=== PATIENT | female | born 1960 | race Caucasian/White ===

== ENCOUNTER 2025-07-25 12:30 | Emergency (ER) | payer OTHER, SELFPAY ==
[2025-07-25 13:03] VITALS: BP 115/71; PULSE 82; RESP 16; TEMP 36.4; O2SAT 99; BMI 27.9
--- NOTE | 2025-07-25 13:04 | ED.GENADULT ---
HPI - General Adult General Chief complaint: General Medical Stated complaint: SOB ? Diverticulitis Flare-up Related Data Allergies Allergy/AdvReac Type Severity Reaction Status Date / Time No Known Allergies Allergy Verified 07/25/25 13:06 [facility] Social History Social History Advance Directives: No Advance Directives Information Provided: No Physical Exam ED Vital Signs: BMI result Body Mass Index 27.9 Course Course Course Narrative: This is a rapid medical exam performed by Kristen Bolivar NP: Additional HPI, ROS, PE not included below will be deferred to primary provider. Patient is a 64y/o F with pmhx of diverticulitis presenting with acute episode prior to arrival of abrupt abd pain, then had diarrhea/was incontinent of stool while driving. She then became diaphoretic and had dyspnea, jaw pain so she pulled in to the ED here. Reports palpitations/heart racing. Also states has been having bright red blood in stool for the past month. Intermittent chest pain at nights. Plan: EKG, labs, UA Patient left the emergency department before myself or any of the other clinicians could review or explain physical exam findings, test results, need or lack there of for additional testing, treatment options, or a treatment plan. Medical Decision Making Lab Data 07/25/25 13:14 07/25/25 13:14 Labs: Lab Results 07/25/25 Range/Units 13:14 WBC 6.3 (4.8-10.8) X10*3/uL RBC 4.50 (4.20-5.50) X10*6/uL Hgb 13.0 (12.0-16.0) g/dl Hct 39.0 (37.0-47.0) % MCV 86.7 (80.0-98.0) fL MCH 28.9 (27.0-33.0) pg MCHC 33.3 (31.0-35.0) g/dl RDW 12.5 (11.0-16.0) % Plt Count 275 (160-400) X10*3/uL MPV 9.3 L (9.4-12.3) fL Immature Gran % (Auto) 0.3 (0.0-0.4) % Neut % (Auto) 54.3 (45-73) % Lymph % (Auto) 34.4 (20-40) % [place] % (Auto) 7.7 (2-11) % Eos % (Auto) 2.5 (0-4) % Baso % (Auto) 0.8 (0-2) % Lymph # (Auto) 2.2 (1.2-4.9) X10*3/uL Lawrence # (Auto) 0.5 (0.1-1.2) X10*3/uL Eos # (Auto) 0.2 (0.0-0.4) X10*3/uL Baso # (Auto) 0.1 (0.0-0.2) X10*3/uL Abs Immat Gran (auto) 0.02 (0.00-0.03) X10*3/uL Absolute Neuts (auto) 3.4 (2.0-8.3) x10*3/uL Absolute Nucleated RBC 0.000 (0.0-0.012) X10*3/uL Nucleated RBC % (auto) 0.0 (0.0-0.2) /100WBC PT 10.7 L (10.9-12.4) SEC INR 0.9 (0.9-1.1) Sodium 142 (135-145) mmol/L Potassium 4.3 (3.3-5.1) mmol/L Chloride 108 (96-108) mmol/L Carbon Dioxide 29 (22-29) mmol/L Anion Gap 9 L (12-20) BUN 13 (9-16) mg/dL Creatinine 0.69 (0.5-1.4) mg/dL Estim Creat Clear Calc 69.2 Estimated GFR > 60 Random Glucose 87 (60-115) mg/dL Calcium 8.9 (8.4-10.2) mg/dL Total Bilirubin 0.4 (0.0-1.0) mg/dL AST 28 (5-31) U/L ALT 28 (0-31) U/L Alkaline Phosphatase 95 (39-117) U/L Troponin I High Sens < 2.7 (<3.5-17.0) ng/L Total Protein 7.0 (6.5-8.0) g/dL Albumin 4.2 (3.5-5.0) g/dL Discharge Plan Discharge Clinical Impression: Abdominal pain Patient Disposition: Left W/O Completing Treatment Discharge Date/Time: 07/25/25 19:14
--- NOTE | 2025-07-25 13:07 | ECG_ITS ---
Test Reason : SOB Blood Pressure : */* mmHG Vent. Rate : 72 BPM Atrial Rate : 72 BPM P-R Int : 148 ms QRS Dur : 84 ms QT Int : 398 ms P-R-T Axes : 60 15 42 degrees QTcB Int : 435 ms Normal sinus rhythm Normal ECG No previous ECGs available Referred By: Ynes Bolivar Electronically Signed By: RORO TAPIA
[2025-07-25 13:28] LABS: MANUAL DIFF FLAG NO
[2025-07-25 13:35] LABS: INTERNATIONAL NORM RATIO 0.9 (0.9-1.1); Prothrombin Time 10.7 SEC (10.9-12.4)
[2025-07-25 13:40] LABS: Hematocrit 39.0 % (37.0-47.0); Hemoglobin 13.0 g/dl (12.0-16.0); Imm Gran Abs Auto 0.02 X10*3/uL (0.00-0.03); Imm Gran Pct Auto 0.3 % (0.0-0.4); Lymphocytes Absolute Auto 2.2 X10*3/uL (1.2-4.9); Mean Corpuscular HGB Conc 33.3 g/dl (31.0-35.0); Mean Corpuscular Hemoglobin 28.9 pg (27.0-33.0); Mean Corpuscular Volume 86.7 fL (80.0-98.0); NRBC Abs Auto 0.000 X10*3/uL (0.0-0.012); NRBC Pct Auto 0.0 /100WBC (0.0-0.2); Platelet Count 275 X10*3/uL (160-400); Red Blood Count 4.50 X10*6/uL (4.20-5.50); White Blood Count 6.3 X10*3/uL (4.8-10.8)
[2025-07-25 13:46] LABS: Alanine Aminotransferase 28 U/L (0-31); Albumin Level 4.2 g/dL (3.5-5.0); Alkaline Phosphatase 95 U/L (39-117); Anion Gap 9 (12-20); Aspartate Amino Transferase 28 U/L (5-31); Blood Urea Nitrogen 13 mg/dL (9-16); Calcium 8.9 mg/dL (8.4-10.2); Carbon Dioxide 29 mmol/L (22-29); Chloride 108 mmol/L (96-108); Creatinine Clr Calc Pharmacy 69.2; Estimated Glomerular Filt Rate > 60; Potassium 4.3 mmol/L (3.3-5.1); Sodium 142 mmol/L (135-145); Total Protein 7.0 g/dL (6.5-8.0)
[2025-07-25 13:54] LABS: Troponin-I High Sensitivity < 2.7 ng/L (<3.5-17.0)
--- OUTSIDE RECORDS SUMMARY | 2025-07-25 19:08 | XMS_ITS | Clinical Summary ---
Author Organization [facility] Address [address] [place] [address] Care Team Providers Care Director [employer] Name Role Phone Unavailable Primary Care Provider Unavailabl e Allergies No known active allergies Medications No known medications Active Problems No known active problems Social History Tobacco Use Types Packs/Day Years Used Date Smoking Tobacco: Former Cigarettes 0.5 Q uit: 2019 Smokeless Tobacco: Never Tobacco Cessation:Counseling Given: Not Answered Alcohol Use Standard Drinks/Week Comments Yes 0 (1 standard drink = 0.6 oz pur e alcohol) socially Sex and Gender Information Value Date Recorded Sex Assigned at Female 12/10/2023 1:26 PM EST Gender Identity Not on file Sexual Orientation Not on file Job Start Date Occupation Industry Not on file Not on file Not on file Last Filed Vital Signs Vital Sign Reading Time Taken Comments Blood Pressure 128/62 12/10/2023 4:09 PM EST Pulse 74 12/10/2023 4:09 PM EST Temperature 36.9 C (98.5 F) 12/10/2023 4:09 PM EST Respiratory Rate 16 12/10/2023 4:09 PM EST Oxygen Saturation 96% 12/10/2023 4:09 PM EST Inhaled Oxygen Concentration - - Weight 73 kg (161 lb) 12/10/2023 12:56 PM EST Height 152.4 cm (5') 12/10/2023 12:56 PM EST Body Mass Index 31.44 12/10/2023 12:56 PM EST Plan of Treatment Health Maintenance Due Date Last Done Comments Hepatitis C Screening 1960 Depression Screening 1972 Preventative Health Evaluation 1978 Cervical Cancer Screening (Pap Smear) 1981 Colon Cancer Screening (Colonoscopy) 2005 Breast Cancer Screening (Mammogram) 2010 Shingrix-Zoster Vaccine (1 of 2) 2010 DTap / Tdap / Td (2 - Td or Tdap) 02/26/2025 02/26/2015 COVID-19 Vaccine (4 - season) 2025 08/09/2021, 11/22/2020, 11/01/2020 Influenza Vaccine (#1) 2025 08/09/2011 Pneumococcal Vaccine (2 of 2 - PCV) 2025 05/16/2017 RSV Adult > 60+ Yrs or (1 - 1-dose 75+ series) 2035 Hepatitis B Vaccines Completed 10/09/2006, 05/17/2006, 05/17/2006, Additional history exists Pneumococcal Vaccine Aged Out 05/16/2017 No long er eligible based on patient's age to complete this topic RSV Ped < 20 months Aged Out No longe r eligible based on patient's age to complete this topic Insurance Payer Benefit Plan / Group Subscriber ID Effective Dates Phone Address [facility] [id number] 2023-Fabian t [address] [place] [address] O
--- OUTSIDE RECORDS SUMMARY | 2025-07-25 19:08 | XMS_ITS ---
Author Name [facility] Organization Unknown Results Test Name/Text Value Interpretation Date Range Source Leukocyte esterase Ur Ql Strip.auto TRACE Abnormal 12/10/2023 - [facility] pH Ur Strip.auto 6.0 Normal 12/10/2023 4.5 - 8 [facility] Sp Gr Ur Strip.auto 1.015 Normal 12/10/2023 1.005 - 1 .03 [facility] Ketones Ur Ql Strip.auto NEGATIVE Normal 12/10/2023 - [facility] Hgb Ur Ql Strip.auto MODERATE Abnormal 12/10/2023 - [facility] Clarity Ur Refract.auto CLEAR Normal 12/10/2023 [facility] Glucose Ur Ql Strip.auto NEGATIVE Normal 12/10/2023 - [facility] Prot Ur Ql Strip.auto TRACE Abnormal 12/10/2023 - [facility] Nitrite Ur Ql Strip.auto NEGATIVE Normal 12/10/2023 - [facility] SPECIMEN SOURCE XXX URINE CLEAN CATCH Normal 12/10/2023 [facility] SQUAMOUS NO./AREA URNS LPF 5.0 /LPF Normal 12/10/2023 0 - 5 [facility] RBC number/area UrnS Auto 8.0 /HPF Above high normal 12/10/2023 0 - 3 [facility] WBC number/area UrnS Auto 6.0 /HPF Above high normal 12/10/2023 0 - 5 [facility] MCV RBC AUTO 92.9 fL Normal 12/10/2023 78 - 100 [facility] NEUTROPHILS NO. BLD AUTO 8.4 K/uL Above high normal 12/10/2023 1.8 - 7.8 [facility] LYMPHOCYTES NFR BLD AUTO 16.6 % Below low normal 12/10/2023 20 - 48 [facility] BASOPHILS IN BLOOD BY AUTOMATED COUNT 0.0 K/uL Normal 12/10/2023 0 - 0.2 [facility] MCH RBC QN AUTO 29.7 pg Normal 12/10/2023 25 - 33 [facility] HGB BLD MCNC 12.6 g/dL Normal 12/10/2023 12.5 - 16 [facility] H WBC NO. BLD AUTO 11.4 K/uL Above high normal 12/10/2023 4 - 10.5 [facility] BASOPHILS NFR BLD AUTO 0.3 % Normal 12/10/2023 0 - 2 [facility] IMMATURE GRANULOCYTE, ABSOLUTE 0.07 k/uL Normal 12/10/2023 - 0.1 [facility] MONOCYTES NO. BLD AUTO 0.9 K/uL Above high normal 12/10/2023 0 - 0.8 [facility] LYMPHOCYTES NO. BLD AUTO 1.9 K/uL Normal 12/10/2023 1 - 3.2 [facility] EOSINOPHIL NO. BLD AUTO 0.2 K/uL Normal 12/10/2023 0 - 0.5 [facility] EOSINOPHIL NFR BLD AUTO 1.4 % Normal 12/10/2023 0 - 6 [facility] PMV BLD AUTO 9.5 fL Normal 12/10/2023 7.4 - 11.4 [facility] MCHC RBC AUTO MCNC 32.0 g/dL Normal 12/10/2023 32 - 36 [facility] PLATELET NO. BLD AUTO 254.0 K/uL Normal 12/10/2023 150 - 450 [facility] HCT VFR BLD AUTO 39.4 % Normal 12/10/2023 37 - [address] [facility] RBC NO. BLD AUTO 4.24 M/uL Normal 12/10/2023 4.2 - 5.4 CT [facility] NUCLEATED RBC 0.0 % Normal 12/10/2023 0 - 1 [facility] NEUTROPHILS NFR BLD AUTO 73.3 % Normal 12/10/2023 44 - 74 [facility] MONOCYTES NFR BLD AUTO 7.8 % Normal 12/10/2023 2 - 12 [facility] RDW RBC AUTO RTO 12.5 % Normal 12/10/2023 12.1 - 16.2 [facility] IMMATURE GRANULOCYTE, PERCENT 0.6 % Normal 12/10/2023 0 - 1 [facility] CHLORIDE SERPL SCNC 103.0 mmol/L Normal 12/10/2023 98 - 1 07 [facility] CALCIUM SERPL MCNC 9.0 mg/dL Normal 12/10/2023 8.4 - 10.2 [facility] HCO3 SER SCNC 26.0 mmol/L Normal 12/10/2023 24 - 32 [facility] POTASSIUM SERPL SCNC 3.6 mmol/L Normal 12/10/2023 3.5 - 5.1 [facility] CREAT SERPL MCNC 1.0 mg/dL Normal 12/10/2023 0.5 - 1 [facility] SODIUM SERPL SCNC 136.0 mmol/L Normal 12/10/2023 135 - 14 5 [facility] ANION GAP SERPL SCNC 7.0 mmol/L Normal 12/10/2023 5 - 14 [facility] BUN SERPL MCNC 12.0 mg/dL Normal 12/10/2023 7 - 17 [facility] Glomerular filtration rate/1.73 sq M. predicted 63.0 Normal 12/10/2023 60 - [facility] GLUCOSE SERPL MCNC 89.0 mg/dL Normal 12/10/2023 70 - 199 [facility] Encounters Encounter Type Encounter Reason Primary Diagnosis Location Date Emergency Diverticulitis of intestine, part unspecified, without perforation or abscess without bleeding Diverticulitis of intestine, part unspecified, without perforation or abscess without bleeding [facility] 12/10/2023 Care Team Organization Name Specialty Phone Email Start Date End Da te [facility] [id number]/06/2025 [facility] 12/10/2023
== END 2025-07-25 19:14 | disposition left against medical advice (07) ==
PROVIDERS: Registered Nurse Emergency; Emergency Provider Emergency Medicine
DX: R06.02 Shortness of breath (principal); R10.21 Pelvic and perineal pain right side; R19.7 Diarrhea, unspecified; R15.9 Full incontinence of feces; Z79.899 Other long term (current) drug therapy
CPT/HCPCS: 36415; 80053; 84484; 85025; 85610; 93005; 99283

== ENCOUNTER → 2025-07-25 13:07 | Outpatient (BNV) | payer OTHER, SELFPAY | PROVIDERS: Emergency Provider Emergency Medicine; Visit Provider Internal Medicine | DX: R06.02 Shortness of breath (principal) | CPT/HCPCS: 93010 ==